=== PATIENT | female | born 1935 | race Caucasian/White ===

== ENCOUNTER 2024-07-21 19:01 | Emergency (ER) | payer MEDICARE, SELFPAY ==
[2024-07-21 19:14] VITALS: BP 131/84
--- NOTE | 2024-07-21 21:18 | ED.GENMED ---
History of Present Illness
<SUZI Lynch - Last Filed: 07/22/24 00:10>
General
Chief Complaint: Psychiatric Problem
Source: other (Nursing)
Exam Limitations: dementia
Time Seen by Provider: 07/21/24 20:25
History of Present Illness
History of Present Illness:
This is a 88 year old female that comes in with c/o confusion. Nursing states that she had fallen recently and was seen at [place]. Today patient was placed in [facility] and her family left her at 4pm. Told that the patient then became
aggressive and combative with staff. Patient has no complaints. Denies any fever, chills, chest pain, SOB, abd pain, nausea, vomiting, diarrhea, headache, dizziness.
Past History
<SUZI Lynch - Last Filed: 07/22/24 00:10>
Past History
ED Past Medical History: Hypothyroidism and Other (Balance issues, Dementia)
ED Past Surgical History: None
Social History
Tobacco: Non-smoker
Alcohol: Occasional
Living: [facility] ([facility])
Review of Systems
<SUZI Lynch - Last Filed: 07/22/24 00:10>
Review of Systems
All Other Systems: ROS reviewed and negative except as documented in HPI and ROS
Constitutional: Reports no symptoms; Denies fever or chills
EENT: Reports no symptoms
Respiratory: Reports no symptoms; Denies cough or trouble breathing
Cardiac: Reports no symptoms; Denies chest pain
ABD/GI: Reports no symptoms; Denies abdominal pain, nausea, vomiting or diarrhea
: Reports no symptoms; Denies dysuria, frequency or urgency
Musculoskeletal: Reports no symptoms
Skin: Reports no symptoms
Neurological: Reports no symptoms; Denies dizzy or headache
Psychiatric: Reports no symptoms
Phy Exam
<SUZI Lynch - Last Filed: 07/22/24 00:10>
General Physical Exam
General Presentation: well appearing (Patient able to answer questions about self) and no apparent distress
General age: appears stated age
General Skin: warm and dry
General Habitus: elderly
General Mental: usual mental status
General Hydration: appears well hydrated
ENT Exam
ENT Exam: TM's normal, pharynx normal and neck supple
Eye Exam
Eye Exam: EOMI
Cardiovascular Exam
Cardiovascular Exam: regular rate/rhythm, no edema and normal peripheral pulses
Pulmonary Exam
Pulmonary Exam: lungs clear, no respiratory distress, no rales, chest non tender, no crackles, no rhonchi, no wheezing and no cough
Gastrointestinal Exam
Gastrointestinal Exam: normal bowel sounds, non tender, soft, no organomegaly, no pulsatile mass and non distended
Musculoskeletal Exam
Musculoskeletal Exam: no edema and other (Splint left wrist/forearm. )
Skin Exam
Skin Exam: normal color, warm/dry, no rash, no petechia and other (Old bruising noted around left eye)
Psychiatric Exam
Psychiatric Exam: normal mood/affect
Course
<SUZI Lynch - Last Filed: 07/22/24 00:10>
Orders/Labs/Results
Orders:
Orders
07/21/24 21:33
Complete Blood Count/With Diff Urgent
Comprehensive Metabolic Panel Urgent
07/21/24 22:38
Urinalysis Reflex To Culture Urgent
Date Specimen was Collected: 07/21/24
Time Specimen was Collected: 22:37
Urine Microscopic Reflex Cult Urgent
Urine Culture Urgent
ANDREW Source: U
Specimen Description:
Date Specimen was Collected: 07/21/24
Time Specimen was Collected: 22:37
07/21/24 22:57
Risperidone [Risperdal] 0.25 mg PO NOW STA
07/21/24 23:58
Cephalexin Monohydrate [Keflex] 500 mg PO NOW STA
Abnormal Lab Results
07/21/24 07/21/24
21:33 22:38
WBC 11.1 H 10^3/uL
(4.8-10.8)
MCH 26.8 L pg
(27.0-31.0)
MCHC 32.2 L g/dL
(33.0-37.0)
Plt Count 405 H 10^3/uL
(130-400)
Absolute Neuts (auto) 8.6 H 10^3/uL
(1.4-6.5)
Absolute Monos (auto) 0.7 H 10^3/uL
(0.1-0.6)
Neutrophils % 77.2 H %
(42.2-75.2)
Lymphocytes % 15.1 L %
(20.5-51.1)
Potassium 3.2 L mmol/L
(3.5-5.1)
Creatinine 0.5 L mg/dL
(0.6-1.0)
Glucose 102 H mg/dl
(70-99)
Total Protein 6.2 L g/dl
(6.3-8.2)
Ur Occult Blood Reflex 2+ A
(Negative)
Urine Nitrite (Reflex) Positive A
(Negative)
Leukocyte Esterase Rfl 2+ A
(Negative)
Urine RBC 3-6 A /HPF
(0-2)
Urine WBC (Reflex) >100 A /HPF
(0-5)
Urine Bacteria (Reflex) Many A
(Negative)
07/21/24 21:33
07/21/24 21:33
WBC very slightly elevated. PLt slightly elevated. Hypokalemia. Glucose nonfasting. Urine positive or infection.
Vital Signs
Initial and Last Documented VS:
Initial Vital Signs
Temp Pulse Resp BP Pulse Ox
98.6 F 75 16 131/84 96
07/21/24 19:14 07/21/24 19:14 07/21/24 19:14 07/21/24 19:14 07/21/24 19:14
Last Documented Vital Signs
Temp Pulse Resp BP Pulse Ox
98.6 F 70 16 139/73 96
07/21/24 19:14 07/21/24 21:55 07/21/24 19:14 07/21/24 21:55 07/21/24 21:55
<Inocencio Samaniego PA-C - Last Filed: 07/24/24 07:08>
Orders/Labs/Results
Orders:
Orders
07/21/24 21:33
Complete Blood Count/With Diff Urgent
Comprehensive Metabolic Panel Urgent
07/21/24 22:38
Urinalysis Reflex To Culture Urgent
Date Specimen was Collected: 07/21/24
Time Specimen was Collected: 22:37
Urine Microscopic Reflex Cult Urgent
Urine Culture Urgent
ANDREW Source: U
Specimen Description:
Date Specimen was Collected: 07/21/24
Time Specimen was Collected: 22:37
07/21/24 22:57
Risperidone [Risperdal] 0.25 mg PO NOW STA
07/21/24 23:58
Cephalexin Monohydrate [Keflex] 500 mg PO NOW STA
Abnormal Lab Results
07/21/24 07/21/24
21:33 22:38
WBC 11.1 H 10^3/uL
(4.8-10.8)
MCH 26.8 L pg
(27.0-31.0)
MCHC 32.2 L g/dL
(33.0-37.0)
Plt Count 405 H 10^3/uL
(130-400)
Absolute Neuts (auto) 8.6 H 10^3/uL
(1.4-6.5)
Absolute Monos (auto) 0.7 H 10^3/uL
(0.1-0.6)
Neutrophils % 77.2 H %
(42.2-75.2)
Lymphocytes % 15.1 L %
(20.5-51.1)
Potassium 3.2 L mmol/L
(3.5-5.1)
Creatinine 0.5 L mg/dL
(0.6-1.0)
Glucose 102 H mg/dl
(70-99)
Total Protein 6.2 L g/dl
(6.3-8.2)
Ur Occult Blood Reflex 2+ A
(Negative)
Urine Nitrite (Reflex) Positive A
(Negative)
Leukocyte Esterase Rfl 2+ A
(Negative)
Urine RBC 3-6 A /HPF
(0-2)
Urine WBC (Reflex) >100 A /HPF
(0-5)
Urine Bacteria (Reflex) Many A
(Negative)
07/21/24 21:33
07/21/24 21:33
Vital Signs
Initial and Last Documented VS:
Initial Vital Signs
Temp Pulse Resp BP Pulse Ox
98.6 F 75 16 131/84 96
07/21/24 19:14 07/21/24 19:14 07/21/24 19:14 07/21/24 19:14 07/21/24 19:14
Last Documented Vital Signs
Temp Pulse Resp BP Pulse Ox
98.6 F 70 16 139/73 96
07/21/24 19:14 07/21/24 21:55 07/21/24 19:14 07/21/24 21:55 07/21/24 21:55
<SUZI Lynch - Last Filed: 07/22/24 00:10>
MDM/Problems Addressed
Differential Diagnosis Includes:
Dementia, aggressive behavior
MDM/Problems Addressed:
This is a 88 year old female that is brought in by ambulance form [facility]. Told that patient family left her at 4pm and patient became aggressive with staff.
Will check labs and get urine. Patient has history of dementia and if everything normal will discharge back to the [facility].
Spoke with patient daughter. States that she has just gotten to the [facility] around 1:30pm States that she was with her till 4:30pm and told the nurse that they were going to have to watch patient is she was agitated and wouldn't stay in the
room. States that she requested that they call the doctor and get her on medication to help keep her calmer. States that she was told that they don't do that. Patient was sent to the ER. Explained that blood work and a urine were done and if they
were normal would start patient on medication to help with her agitation. They will need to follow up with the doctor there to increased the medication as needed.
Patient was also started on antibiotic for a UTI. Will discharge back to the [facility]pc. patient is very quiet at this time.
Chronic conditions affecting care:
Dementia
Acute Exacerbation and/or Progression of Chronic Illness:
Dementia
<SUZI Lynch - Last Filed: 07/22/24 00:10>
*Pulse Oximetry
Patient hypoxic: no
*EKG
Interpreted by ED Provider?: NA
Rate: EKG- N/A
*Rubber Off Interpretation
Rate: Rubber Off- N/A
*Critical Care Note
Total Time (30-74mins, 75-104mins- exclusive of procedures): Not Applicable
<Inocencio Samaniego PA-C - Last Filed: 07/24/24 07:08>
Update Note
Update Note:
July 24 7:08 AM: Urine culture shows gram-negative bacilli. On Keflex. Sensitivities pending
ED Attending Note
<SUZI Lynch - Last Filed: 07/22/24 00:10>
-
Portions of this chart may have been created with voice recognition software.� Occasional wrong word or��sound alike� substitutions may have occurred due to the inherent limitations of voice recognition software.
Discharge Plan
Departure
Patient Disposition: Correction/SNF
Date of Disposition: 07/21/24
Time of Disposition: 23:59
Patient with high blood pressure during this ER visit?: Yes
Condition: Good
Covid-19: Not Applicable
Discharge Problem:
Urinary tract infection, Agitation due to dementia
Instructions: Urinary Tract Infection, Adult ED, Dementia ED, BLOOD PRESSURE
Prescriptions:
New
cephalexin 500 mg capsule
500 mg PO BID 7 Days Qty: 14 0RF
risperidone 0.25 mg tablet
0.25 mg PO BID Qty: 30 0RF
No Action
quetiapine 25 mg Tablet
12.5 mg PO TID
sennosides [senna] 8.6 mg Tablet
8.6 mg PO HSPRN PRN (Reason: constipation)
acetaminophen 325 mg Tablet
650 mg PO Q4HPRN PRN (Reason: mild pain/temp>100)
polyethylene glycol 3350 [Miralax] 17 gram Powder In Packet
17 g PO DAILY
levetiracetam 500 mg Tablet
500 mg PO Q12H
alendronate 70 mg Tablet
70 mg PO MO
capsaicin [Zostrix-HP] 0.075 % Cream
1 applic TOPICAL TID
Rx Instructions:
L arm
levothyroxine 25 mcg Tablet
25 mcg PO DAILY
lorazepam 0.5 mg Tablet
0.25 mg PO Q8HPRN PRN (Reason: anxiety)
magnesium hydroxide [Milk of Magnesia] 400 mg/5 mL Suspension
30 ml PO DAILYPRN PRN (Reason: if no bm in 3 days)
bisacodyl [Dulcolax (bisacodyl)] 10 mg Suppository
10 mg NE DAILYPRN PRN (Reason: if no bm after MOM was administered)
lansoprazole 30 mg Capsule,Delayed Release(Dr/Ec)
30 mg PO DAILY
sodium phosphates 19-7 gram/118 mL Enema
118 ml NE DAILYPRN PRN (Reason: if suppository is ineffective)
docusate sodium 100 mg Capsule
100 mg PO BID
sertraline 25 mg Tablet
100 mg PO DAILY
memantine 5 mg Tablet
5 mg PO BID
calcium carbonate-vitamin D3 500 mg-5 mcg (200 unit) Tablet
1 tab PO BIDWMEAL
pantoprazole [address] For Susp In Packet
40 mg PO DAILY
melatonin 10 mg Tablet
10 mg PO HS
Referrals:
Sheldon Gee MD [Family Provider] - Follow up in 2-3 days
Activity Restrictions/Additional Instructions:
As discussed, your blood work shows that you have very slight elevation of the White blood cell count. Your urine is positive for infection. Patient has been given a dose of antibiotic here and a prescription for the UTI has been sent with patient.
Patient was also started on Risperidone at a very low dose. This will help with the agitation but may need to be increase. PLEASE HAVE PATIENT FOLLOW UP WITH THE FAMILY DOCTOR IN THE NEXT 2-3 DAYS FOR RECHECK. IF PATIENT HAS FEVER, OR YOU HAVE ANY
OTHER CONCERNS PLEASE REUTRN TO THE EMERGENCY ROOM.
Interventions
Interventions:
*Risk Screen - Suicide Last Done: 07/21/24 19:14
*General Assessment Last Done: 07/21/24 19:14
*Neglect/Abuse Screening Last Done: 07/21/24 19:14
ED- Fall Risk Assessment Last Done: 07/22/24 02:11
*ED COVID-19 Vaccine History Last Done: 07/21/24 19:14
*Nursing Disposition Last Done: 07/22/24 02:10
ED-Psychological Assessment Last Done: 07/21/24 19:20
Discharge Date and Time
Discharge Date/Time: 07/22/24 02:11
Print Language: MAORI
[2024-07-21 21:40] LABS: % Basophils 0.7 % (0-2); % Eosinophils 0.7 % (0-6); % Immature Granulocytes 0.4 % (0-0.5); % Lymphocytes 15.1 % (20.5-51.1); % Monocytes 5.9 % (1.7-9.3); % Neutrophils 77.2 % (42.2-75.2); Absolute Basophils 0.1 10^3/uL (0-0.2); Absolute Eosinophils 0.1 10^3/uL (0-0.7); Absolute Lymphocytes 1.7 10^3/uL (1.2-3.4); Absolute Monocytes 0.7 10^3/uL (0.1-0.6); Absolute Neutrophils 8.6 10^3/uL (1.4-6.5); Hematocrit 38.8 % (37.0-47.0); Hemoglobin 12.5 g/dL (12.0-16.0); Mean Corp Hgb Conc. 32.2 g/dL (33.0-37.0); Mean Corpuscular Hgb 26.8 pg (27.0-31.0); Mean Corpuscular Volume 83.1 fL (81.0-99.0); Mean Platelet Volume 9.2 fL (7.4-10.4); Nucleated Red Blood Cells % 0 %; Platelet Count 405 10^3/uL (130-400); Red Blood Cell Count 4.67 10^6/uL (4.20-5.40); Red Cell Dist. Width 14.1 % (11.5-14.5); White Blood Cell Count 11.1 10^3/uL (4.8-10.8)
--- NOTE | 2024-07-21 21:50 | EDRN ---
cooperative with staff.
[2024-07-21 21:55] VITALS: BP 139/73
[2024-07-21 21:59] LABS: ALT (SGPT) 18 U/L (0-35); AST (SGOT) 23 U/L (14-36); Alkaline Phosphatase 95 U/L (38-126); Blood Urea Nitrogen 13 mg/dl (7-17); Calcium 9.2 mg/dl (8.4-10.2); Carbon Dioxide 27 mmol/L (22-30); Chloride 100 mmol/L (98-107); Estimated Creatinine Clearance 54 ml/min; Glucose 102 mg/dl (70-99); Potassium 3.2 mmol/L (3.5-5.1); Sodium 140 mmol/L (135-145); Total Bilirubin 0.2 mg/dl (0.2-1.3); Total Protein 6.2 g/dl (6.3-8.2); eGFR > 60.00
[2024-07-21 22:45] LABS: Urine Albumin Trace (Neg - Trace); Urine Bilirubin Negative (Negative); Urine Character Slightly Cloudy (Clear); Urine Color Yellow; Urine Glucose Negative (Negative); Urine Ketone Negative (Negative); Urine Leukocyte 2+ (Negative); Urine Nitrite Positive (Negative); Urine Occult Blood 2+ (Negative); Urine Urobilinogen Negative (Neg - 1+)
[2024-07-21 22:57] LABS: Urine Bacteria Many (Negative); Urine White Cell >100 /HPF (0-5)
[2024-07-21] MEDS: RISPERDAL 0.25 MG PO (23:04)
[2024-07-22] MEDS: KEFLEX 500 MG PO (01:51)
== END 2024-07-22 02:11 ==
LOC: EMR 19:01
PROVIDERS: Clinical Nurse Specialist Family Health; EMERGENCY PHYSICIAN Emergency Medicine; FAMILY PHYSICIAN Physical Medicine & Rehabilitation
DX: N39.0 Urinary tract infection, site not specified (principal); F03.911 Unspecified dementia, unspecified severity, with agitation; E03.9 Hypothyroidism, unspecified
CPT/HCPCS: 99283; 80053; 81003; 81015; 85025; 87077; 87086; 87186